=== PATIENT | female | born 1965 | race Hispanic/Latino ===

== ENCOUNTER 2024-10-18 17:19 | Emergency (ER) | payer OTHER ==
[2024-10-18 18:52] LABS: Absolute Eosinophils 0.1 K/uL (0-0.5); Absolute Lymphocytes (CBC) 1.1 K/uL (0.7-4.9); Absolute Neutrophil 6.8 K/uL (1.8-8.0); Basophils % 0.3 % (0-1.3); Eosinophils % 1.1 % (0-4.4); Hematocrit 15.5 % (36.0-45.0); Lymphocytes % 11.8 % (15.3-44.8); MCH 35.2 pg (27.0-35.0); MCHC 33.7 g/dL (32.0-36.0); MCV 104.6 fL (80-100); MPV 8.7 fL (7.6-11.3); Monocytes % 11.5 % (3.3-12.3); Neutrophils % 75.3 % (41.7-73.7); Platelets 112 thou/uL (152-406); RBC Red Blood Cell Count 1.49 M/uL (3.86-4.86); Red Cell Distribution Width 32.1 % (12.1-15.2)
[2024-10-18 19:00] LABS: Hemoglobin 5.2 g/dL (12.0-15.0)
[2024-10-18 19:14] LABS: Albumin 2.7 g/dL (3.4-5.0); Albumin/Globulin Ratio 1.3 (1.1-1.8); Anion Gap 11.2 mEq/L (5.0-15.0); Bilirubin Total 11.1 mg/dL (0.2-1.0); Globulin 2.1 g/dL (2.3-3.5); Potassium 4.2 mEq/L (3.5-5.1); Protein, Total 4.8 g/dL (6.4-8.2)
[2024-10-18 19:15] LABS: PTT, Activated Partial Thromb 48.5 SECONDS (24.3-36.9)
[2024-10-18 19:38] LABS: Anisocytosis 3+; Blood Morphology Comment NOTED (NOT SEEN); Platelet Estimate DECR; Poikilocytosis 2+; Polychromasia 2+; White Blood Cell Scan OK (OK)
[2024-10-18 19:39] LABS: ACANTHOCYTE FEW
[2024-10-18 19:40] LABS: Burr Cells 1+
[2024-10-18 21:11] LABS: PT Prothrombin Time 44.8 SECONDS (9.4-12.5); Protime INR 4.17
--- NOTE | 2024-10-18 21:33 | RAD REPORT ---
EXAM: CT Head Brain Wo Cont HISTORY: Confuse COMPARISON: None TECHNIQUE: Multiple contiguous axial images were obtained for a CT of the brain without contrast. Sag ittal and coronal reformats were performed. One or more of the following dose reduction techniques were used: Automated exposure control, adjus tment of the mA and kV according to patient size, and iterative reconstruction. Unless otherwise specified, incidental findings do not require dedicated imaging follow-up. FINDINGS: No evidence of hydrocephalus, intracranial hemorrhage, or extra-axial fluid collection. The brain is normal in morphology. The calvarium is intact. The visualized paranasal sinuses are clear. Patchy opacification within bila teral mastoid air cells. IMPRESSION: No evidence of acute intracranial abnormality. Bilateral mastoid effusions.
--- NOTE | 2024-10-18 21:52 | RAD REPORT ---
EXAM: CT CHEST, ABDOMEN AND PELVIS WITHOUT CONTRAST CLINICAL INDICATION: Female, 59 years old. [facility] MAIN confusion, cirrhosis Bed Name: 5 TECHNIQUE: CT chest, abdomen and pelvis was performed, without IV contrast, as per department protoco l. Axial, sagittal and coronal reconstructions were obtained. One or more of the following dose reduction techniques were used: Automated exposure control, adjustment of the mA and/or kV according to the patient size, and/or iterative reconstruction. Unless otherwise specified, incidental findings do not require dedicated imaging follow-up. COMPARISON: No prior exam. FINDINGS: The lack of intravenous contrast limits the sensitivity of this exam for evaluation of solid visceral organs, vascular structures, and retroperitoneum. Chest: LOWER NECK/CHEST WALL: Visualized thyroid gland and soft tissues are normal. LUNGS AND AIRWAYS: Airways are clear. No evidence of airspace or interstitial process. No nodules. PLEURA: Bilateral mild layering pleural effusion. No pneumothorax. Hemidiaphragms are normally positi oned. MEDIASTINUM AND LYMPH NODES: No mediastinal mass or fluid collection. Normal size mediastinal, hilar, and axillary lymph nodes. THORACIC AORTA: Normal caliber and configuration. PULMONARY ARTERIES: Normal caliber. HEART: Mildly enlarged. Abdomen/Pelvis LIVER: Normal in size and contour. No focal lesion. GALLBLADDER/BILE DUCTS: Status post cholecystectomy. PANCREAS: No mass, ductal dilation, or anil-pancreatic fluid. SPLEEN: Normal size. No focal lesion. ADRENALS: Normal; no mass. KIDNEYS AND URETERS: Normal size and contour. No hydronephrosis. GASTROINTESTINAL TRACT: Stomach is non-dilated. Small bowel has normal course and caliber. No colonic wall thickening or pericolonic inflammatory changes. PERITONEUM: Mild free ascites. LYMPH NODES: No lymphadenopathy. ABDOMINAL AORTA AND OTHER VESSELS: Normal caliber aorta and IVC. URINARY BLADDER: Partially decompressed limiting evaluation.. REPRODUCTIVE ORGANS: No pathologic process. MUSCULOSKELETAL: No acute or suspicious osseous abnormality. ADDITIONAL FINDINGS: Mild diffuse body wall edema. IMPRESSION: Mild free ascites, bilateral pleural effusions, and body wall edema, suggesting third spacing/fluid o verload. Mild cardiomegaly. Other findings as above.
[2024-10-18] MEDS ORDERED: NA CHLORIDE 0.9% 250 ML ONE (22:32)
[2024-10-18] MEDS ORDERED: LACTULOSE 20 GM/30 ML UCUP ONE (22:33)
[2024-10-19] MEDS ORDERED: ALBUMIN HUMAN 25% 100 ML IV ONE (04:44)
[2024-10-19 04:56] LABS: Hematocrit 21.6 % (36.0-45.0); Hemoglobin 7.3 g/dL (12.0-15.0)
[2024-10-19 05:30] LABS: Specific Gravity 1.016 (1.005-1.030); Urine Bacteria 20-50 /HPF (<20); Urine Bilirubin 2+ (Negative); Urine Blood Negative (Negative); Urine Clarity Extremely Turbid (Clear); Urine Color Dark-Yellow (Yellow); Urine Culture Reflex Order NOT NEEDED; Urine Glucose NEGATIVE (Negative); Urine Ketones NEGATIVE (Negative); Urine Microscopic Reflex YN ORDER UMIC; Urine Mucus Slight /HPF (None Seen); Urine Nitrite NEGATIVE (Negative); Urine Protein TRACE (Negative); Urine RBC <5 /HPF (None Seen); Urine Urobilinogen Normal (Normal); Urine Yeast (Budding) Many /HPF (None Seen)
[2024-10-19] MEDS ORDERED: FUROSEMIDE 40 MG/4 ML VIAL ONE (06:29)
[2024-10-19] MEDS ORDERED: CEFTRIAXONE 1000 MG/VIAL ONE (06:29)
[2024-10-19] MEDS ORDERED: NA CHLORIDE 0.9% 50 ML ONE (06:29)
--- NOTE | 2024-10-19 06:50 | EDPHYS ---
[facility] Documentation [facility] Name: Leila Leal Age: 59 yrs Sex: Female : 1965 Arrival Date: 10/18/2024 Time: 17:19 Bed 5 Private MD: ED Physician Trey Bailey HPI: 10/18 17:59 This 59 yrs old Female presents to ER via Wheelchair with complaints of AMS. sb4 18:01 Patient with history of cirrhosis on liver transplant list presents with worsening sb4 confusion. states that she gets like this when her hemoglobin is low when she needs a blood transfusion. States that she was released from [facility] 2-1/2 weeks ago and had several transfusions while she was there. States her last hemoglobin was 7 earlier this week. He reports compliance with her lactulose. 10/19 04:49 Patient care was assumed from nurse practitioner. Patient's medications include sp4 rifaximin 550 mg p.o. twice daily, zinc 50 mg 1 tablet in the morning, vitamin D two 1 capsule/week, brimonidine ophthalmic solution 3 times a day, ciprofloxacin 500 mg by mouth daily, dorzolamide timolol ophthalmic solution, lactulose 30 g 3 times a day, midodrine 10 mg p.o. 3 times daily, pantoprazole 40 mg p.o. daily,. Historical: - Allergies: 10/18 17:46 No Known Allergies; cm10 - Home Meds: 17:46 brimonidine 0.2 % ophthalmic (eye) drops 1 drop 3 times per day [Active]; Cipro 500 mg cm10 Oral tablet 1 tab daily [Active]; dorzolamide-timolol 22.3-6.8 mg/mL ophthalmic (eye) drops 1 drop 2 times per day [Active]; lactulose 10 gram/15 mL (15 mL) Oral solution 30 mL 3 times per day [Active]; midodrine 10 mg oral tablet 1 tab 3 times per day [Active]; pantoprazole 40 mg oral tablet, delayed release (enteric coated) 1 tab daily [Active]; rifaximin 550 mg oral tablet 1 tab 2 times per day [Active]; zinc sulfate 50 mg zinc (220 mg) Oral capsule 1 cap daily [Active]; Vitamin D2 1,250 mcg (50,000 unit) oral capsule 1 cap [Active]; - PMHx: 17:46 Cirrhosis of liver; Diabetes mellitus; HYPOTENSION; LIVER FAILURE; cm10 - PSHx: 17:46 section; Cholecystectomy; cm10 - Immunization history:: Adult Immunizations up to date. - Infectious Disease History:: Denies. - Social history:: Smoking status: Patient denies any tobacco usage or history of. ROS: 18:01 Constitutional: Negative for fever, chills, and weight loss, sb4 18:01 Neuro: Positive for confusion, 18:01 All other systems are negative, Exam: 18:01 Head/Face: Normocephalic, atraumatic. Eyes: Extra-ocular motions intact. Periorbital sb4 areas with no swelling, redness, or edema. ENT: Mucous membranes moist. Cardiovascular: Regular rate and rhythm with a normal S1 and S2. Respiratory: No increased work of breathing, no retractions or nasal flaring. Skin: Warm, dry with normal turgor. Normal color with no rashes, no lesions, and no evidence of cellulitis. 18:01 Constitutional: The patient appears alert, awake, obviously ill, 18:01 Eyes: Sclera: icterus, 18:01 Abdomen/GI: Inspection: obese 10/19 01:37 Skin: Appearance: Color: jaundiced, sb4 06:06 Constitutional: This is a well developed, ill-appearing female, diffusely jaundiced, sp4 mild to moderate physical deconditioning, able to stand up with assistance. Head/Face: Normocephalic, atraumatic. Eyes: Pupils equal round and reactive to light, extra-ocular motions intact. Lids and lashes normal. Patient has scleral icterus, cornea within normal limits. Periorbital areas with no swelling, redness, or edema. ENT: Nares patent. No nasal discharge, no septal abnormalities noted. Tympanic membranes are normal and external auditory canals are clear. Oropharynx with no redness, swelling, or masses, exudates, or evidence of obstruction, uvula midline. Tongue discoloration indicative of jaundice Neck: Trachea midline, no thyromegaly or masses palpated, and no cervical lymphadenopathy. Supple, full range of motion without nuchal rigidity, or vertebral point tenderness. Chest/axilla: Normal chest wall appearance and motion. Nontender with no deformity. No lesions are appreciated. Cardiovascular: Regular rate and rhythm with a normal S1 and S2. No gallops, murmurs, or rubs. Normal PMI, no JVD. No pulse deficits. Respiratory: Lungs have equal breath sounds bilaterally, clear to auscultation and percussion. No rales, rhonchi or wheezes noted. No increased work of breathing, no retractions or nasal flaring. Abdomen/GI: Soft, with normal bowel sounds. No distension or tympany. No guarding or rebound. No evidence of tenderness throughout. Rectal examination reveals no blood or melena, reveals no fissures or fistulas. No rectal mass, normal anal tone. Back: No spinal tenderness. No costovertebral tenderness. Skin: Warm, dry with normal turgor. Normal color with no rashes, no lesions, and no evidence of cellulitis. MS/ Extremity: Pulses equal, no cyanosis. Neurovascular intact. Full, normal range of motion. Neuro: Awake and alert, GCS 15, oriented to person, place, time, and situation. Cranial nerves II-XII grossly intact. Motor strength 5/5 in all extremities. Sensory grossly intact. Psych: Awake, alert, with orientation to person, place and time. Behavior, mood, and affect are within normal limits Vital Signs: 10/18 17:43 BP 108 / 64; Pulse 82; Resp 16; Temp 97.2(TE); Pulse Ox 96% on R/A; Weight 82.1 kg; cm10 Height 5 ft. 3 in. ; Pain 0/10; 19:40 BP 111 / 54; Pulse 81; Resp 18; Pulse Ox 99% ; Pain 0/10; br2 20:37 BP 112 / 57; Pulse 81; Resp 20 S; Pulse Ox 100% on R/A; br2 22:45 BP 110 / 60; Pulse 83; Resp 18 S; Pulse Ox 100% on R/A; br2 10/19 01:01 BP 106 / 53; Pulse 77; Resp 18 S; Pulse Ox 100% on R/A; br2 02:10 BP 105 / 55; Pulse 79; Resp 18; Temp 97.6; Pulse Ox 100% ; br2 05:20 BP 131 / 75; Pulse 58; Resp 18; Pulse Ox 95% on R/A; br2 05:46 BP 102 / 52; Pulse 81; Resp 16 S; Pulse Ox 100% on R/A; br2 07:21 BP 103 / 54; Pulse 88; Resp 16 S; Pulse Ox 99% on R/A; kc6 08:02 BP 115 / 55; Pulse 86; Resp 16 S; Pulse Ox 98% on R/A; kc6 11:53 BP 117 / 78; Pulse 98; Resp 16 S; Pulse Ox 100% on R/A; kc6 14:07 BP 111 / 58; Pulse 86; Resp 16 S; Pulse Ox 100% on R/A; kc6 17:08 BP 118 / 62; Pulse 91; Resp 16 S; Pulse Ox 100% on R/A; kc6 10/18 17:43 Body Mass Index 32.06 (82.10 kg, 160.02 cm) cm10 10/18 17:43 Pain Scale: Adult cm10 19:40 Pain Scale: Adult br2 Ray Coma Score: 06:06 Eye Response: spontaneous(4). Motor Response: obeys commands(6). Verbal Response: sp4 oriented(5). Total: 15. MDM: 10/18 17:52 Medical Screening Exam initiated sb4 19:36 Data reviewed: vital signs, nurses notes, lab test result(s), radiologic studies. sb4 10/19 04:35 ED course: EXAM: CT CHEST, ABDOMEN AND PELVIS WITHOUT CONTRAST CLINICAL INDICATION: sp4 Female, 59 years old. [facility] MAIN confusion, cirrhosis Bed Name: 5 TECHNIQUE: CT chest, abdomen and pelvis was performed, without IV contrast, as per department protocol. Axial, sagittal and coronal reconstructions were obtained. One or more of the following dose reduction techniques were used: Automated exposure control, adjustment of the mA and/or kV according to the patient size, and/or iterative reconstruction. Unless otherwise specified, incidental findings do not require dedicated imaging follow-up. COMPARISON: No prior exam. FINDINGS: The lack of intravenous contrast limits the sensitivity of this exam for evaluation of solid visceral organs, vascular structures, and retroperitoneum. Chest: LOWER NECK/CHEST WALL: Visualized thyroid gland and soft tissues are normal. LUNGS AND AIRWAYS: Airways are clear. No evidence of airspace or interstitial process. No nodules. PLEURA: Bilateral mild layering pleural effusion. No pneumothorax. Hemidiaphragms are normally positioned. MEDIASTINUM AND LYMPH NODES: No mediastinal mass or fluid collection. Normal size mediastinal, hilar, and axillary lymph nodes. THORACIC AORTA: Normal caliber and configuration. PULMONARYARTERIES: Normal caliber. HEART: Mildly enlarged. Abdomen/Pelvis LIVER: Normal in size and contour. No focal lesion. GALLBLADDER/BILE DUCTS: Status post cholecystectomy. PANCREAS: No mass, ductal dilation, or anil-pancreatic fluid. SPLEEN: Normal size. No focal lesion. ADRENALS: Normal; no mass. KIDNEYS AND URETERS: Normal size and contour. No hydronephrosis. GASTROINTESTINAL TRACT: Stomach is non-dilated. Small bowel has normal course and caliber. No colonic wall thickening or pericolonic inflammatory changes. PERITONEUM: Mild free ascites. LYMPH NODES: No lymphadenopathy. ABDOMINAL AORTA AND OTHER VESSELS: Normal caliber aorta and IVC. URINARYBLADDER: Partially decompressed limiting evaluation.. REPRODUCTIVE ORGANS: No pathologic process. MUSCULOSKELETAL: No acute or suspicious osseous abnormality. ADDITIONAL FINDINGS: Mild diffuse body wall edema. IMPRESSION: Mild free ascites, bilateral pleural effusions, and body wall edema, suggesting third spacing/fluid overload. Mild cardiomegaly. Other findings as above. . 04:37 ED course: EXAM: CT Head Brain Wo Cont HISTORY: Confuse COMPARISON: None TECHNIQUE: sp4 Multiple contiguous axial images were obtained for a CT of the brain without contrast. Sagittal and coronal reformats were performed. One or more of the following dose reduction techniques were used: Automated exposure control, adjustment of the mA and kV according to patient size, and iterative reconstruction. Unless otherwise specified, incidental findings do not require dedicated imaging follow-up. FINDINGS: No evidence of hydrocephalus, intracranial hemorrhage, or extra-axial fluid collection. The brain is normal in morphology. The calvarium is intact. The visualized paranasal sinuses are clear. Patchy opacification within bilateral mastoid air cells. IMPRESSION: No evidence of acute intracranial abnormality. Bilateral mastoid effusions. . 04:47 ED course: MELD score including serum albumin is 34. ED course: Patient remains sp4 confused appears encephalopathic. Will take steps to transfer patient for consultation with hepatology and further management. Patient's family requested transfer to [facility].. 05:39 Differential Diagnosis altered mental status, sepsis, flu, Hepatic encephalopathy. ED sp4 course: Patient was declined at [facility] secondary to hepatology available.. Patient was declined at [facility] secondary to capacity. Patient was declined at [facility] secondary to capacity. Patient was also declined at [facility] secondary to capacity. At this time requesting transfer to [facility]. . 06:04 Consideration of Admission/Observation Escalation of care including sp4 admission/observation considered. Management of patient was discussed with the following: Trader: Dr. Emiliano Leon with gastroenterology. ED course: Patient was declined by all hospitals in [place] that have hepatology available. Patient is found stable for admission here with GI consult. . 06:42 ED course: Spoke with Dr. Nelson Montes De Oca Pewter Caster at [facility] sp4 - he states that patient will be placed on the waiting list at [facility]. . 07:07 Transition of care: After a detail discussion of the patient's case, care is sp4 transferred to Trey Bailey DO. 14:24 ED course: Doc to doc with Dr Cruz at [facility] completed. She recommends vitamin K for ms3 INR. Patient being escalated; however, patient is on wait list for transfer.. 14:31 ED course: Dr Oneal consulted for assistance in management while patient is pending ms3 transfer to [facility].. 16:59 ED course: Per Dr Oneal patient needs to be transferred for Hepatology. ms3 10/18 17:47 Order name: CBC with Diff; Complete Time: 19:42 sb4 10/18 17:47 Order name: CMP; Complete Time: 19:21 sb4 10/18 17:47 Order name: Urinalysis w/ reflexes; Complete Time: 05:40 sb4 10/18 17:59 Order name: AMMONIA; Complete Time: 19:10 sb4 10/18 17:59 Order name: PT-INR; Complete Time: 21:13 sb4 10/18 17:59 Order name: Ptt, Activated; Complete Time: 21:13 sb4 10/18 19:01 Order name: Type And Screen sb4 10/18 19:18 Order name: Packed RBC Leukored EDMS 10/18 19:41 Order name: CBC Smear Scan; Complete Time: 19:42 EDMS 10/19 04:38 Order name: Hemoglobin; Complete Time: 05:40 sp4 10/19 04:38 Order name: Hematocrit; Complete Time: 05:40 sp4 10/19 06:51 Order name: Glucose, Ancillary Testing; Complete Time: 07:01 EDMS 10/18 19:28 Order name: Head Brain Wo Cont CT; Complete Time: 21:35 sb4 10/18 19:28 Order name: CT Chest Abdomen Pelvis W/O Contrast; Complete Time: 21:53 sb4 10/18 17:47 Order name: IV Saline Lock; Complete Time: 18:43 sb4 10/18 17:47 Order name: Labs collected and sent; Complete Time: 18:43 sb4 10/18 19:01 Order name: Transfuse; Complete Time: 07:06 sb4 10/18 19:25 Order name: Misc. Order: RECOLLECT BLUE TOP; Complete Time: 21:38 rv1 10/19 06:03 Order name: Keita; Complete Time: 06:25 sp4 Administered Medications: 10/18 23:29 Drug: Lactulose PO 20 grams 30 ml PO once Volume: 30 ml; Route: PO; br2 10/19 01:30 Follow up: Response: No adverse reaction br2 05:18 Drug: Albumin IVPB 25 grams 100 ml IVPB once; (Note: Albumin 25% concentration) Volume: br2 100 ml; Route: IVPB; Site: right antecubital; 06:25 Follow up: Response: No adverse reaction; IV Status: Completed infusion; IV Intake: br2 100ml 06:41 Drug: Furosemide IVP 40 mg IVP once; give over 2 minutes Route: IVP; Site: right br2 antecubital; 07:20 Follow up: Response: No adverse reaction kc6 06:42 Not Given (NOT AVAILABLE IN HOSPITAL, DR Allen NOTIFIEDd): Xifaxan 550 mg PO once br2 06:45 Drug: Rocephin - Rocephin (cefTRIAXone) IVPB 1 grams IVPB once over 30 mins; (mix in 50 br2 mL NS) Route: IVPB; Infused Over: 30 mins; Site: right antecubital; 07:20 Follow up: Response: No adverse reaction; IV Status: Completed infusion; IV Intake: [id number] 07:19 Drug: Ondansetron IVP 4 mg IVP once; over 2 minutes Route: IVP; Site: right upper arm; kc6 08:03 Follow up: Response: No adverse reaction kc6 07:20 Drug: D5-NS IV 1000 ml IV at 100 ml/hr continuous Route: IV; Rate: 100 ml/hr; Site: [facility] right upper arm; 17:40 Follow up: Response: No adverse reaction; IV Status: Completed infusion; IV Intake: kc6 1000ml 07:20 Drug: Lactulose PO 30 grams 45 ml PO once Volume: 45 ml; Route: PO; kc6 08:03 Follow up: Response: No adverse reaction kc6 15:18 Drug: Vitamin K1 Liquid 5 mg PO once Route: PO; kc6 17:24 Follow up: Response: No adverse reaction kc6 17:34 Drug: Lactulose PO 50 grams 45 ml PO once; ordering continuing from [facility] Volume: 45 kc6 ml; Route: PO; 17:40 Follow up: Response: No adverse reaction kc6 Disposition: 04:26 Co-signature as Attending Physician, Jaret Galvez MD I agree with the assessment sp4 and plan of care. I reviewed the patient's care provided by Advanced Practice Provider \T\ agree w/ the diagnosis \T\ care plan. I personally saw the pt \T\ performed a substantive portion of the visit, incldng all aspects of the (History/Exam/Medical Decision Making). Disposition Summary: 10/19/24 07:01 Transfer Ordered Notes: Transfer Location: [facility] sp4 Reason: Higher level of care sp4 Condition: Fair(10/19/24 07:01) sp4 Problem: new(10/19/24 07:01) sp4 Symptoms: have improved(10/19/24 07:01) sp4 Accepting Physician: Hepatology Service [facility] (10/19/24 17:47) kc6 Diagnosis - Hepatic failure, unspecified without coma(10/19/24 07:01) sp4 - Acute and subacute hepatic failure sp4 - Hepatic encephalopathy, coagulopathy secondary to chronic liver disease, sp4 symptomatic anemia, anemia of chronic liver disease, physical deconditioning, Anasarca - Acute Hypoactive Delirium sp4 Forms: - Medication Reconciliation Form sp4 - SBAR form sp4 Critical care time excluding procedures: 10/18 19:36 Critical care time: Bedside Care: 15 minutes, Consultation: 15 minutes, Family sb4 Intervention: 5 minutes. Total time: 35 minutes Signatures: Dispatcher [employer] EDMS Trey Bailey, DO ms3 Radha Williamson, RN RN kc6 Salima Robledo PA-C PA-C sb4 Anny Ballesteros rv1 Jaret Galvez MD MD sp4 Vickie Christine, RN RN cm10 Sharlene Escobedo RN RN br2 Corrections: (The following items were deleted from the chart) 10/19 01:38 10/18 18:01 Head/Face: Normocephalic, atraumatic. Eyes: Extra-ocular motions intact. sb4 Periorbital areas with no swelling, redness, or edema. ENT: Mucous membranes moist. Cardiovascular: Regular rate and rhythm with a normal S1 and S2. Respiratory: No increased work of breathing, no retractions or nasal flaring. Skin: Warm, dry with normal turgor. Normal color with no rashes, no lesions, and no evidence of cellulitis. sb4 10/19 06:59 06:49 Inpatient Admission sp4 sp4 06:59 06:49 OnealWenceslao-Ran sp4 sp4 06:59 06:49 Telemetry/MedSurg (Inpatient) sp4 sp4 06:59 06:49 Serious sp4 sp4 06:59 06:49 new sp4 sp4 06:59 06:49 have improved sp4 sp4 06:59 06:49 Standard sp4 sp4 06:59 06:49 sp4 sp4 06:59 06:49 Hepatic failure, unspecified without coma sp4 sp4 06:59 06:49 Acute hepatic encephalopathy, symptomatic anemia, anemia of chronic liver sp4 disease, coagulopathy associated with liver failure, elevated INR, anasarca sp4 17:47 07:01 Hepatology Service [facility] sp4 kc6
--- NOTE | 2024-10-19 06:50 | ER ---
Nurse's Notes [facility] Name: Leila Leal Age: 59 yrs Sex: Female : 1965 Arrival Date: 10/18/2024 Time: 17:19 Bed 5 Private MD: Diagnosis: Hepatic failure, unspecified without coma;Acute and subacute hepatic failure;Hepatic encephalopathy, coagulopathy secondary to chronic liver disease, symptomatic anemia, anemia of chronic liver disease, physical deconditioning, Anasarca;Acute Hypoactive Delirium Presentation: 10/18 17:43 Chief complaint: Spouse and/or significant other states: PT HAS BEEN ACTING CONFUSED. cm10 STATES THAT PT STARTS ACTING THIS WAY WHEN SHE NEEDS A BLOOD TRANSFUSION. PT'S HGB LAST FRIDAY WAS 7.0. Coronavirus screen: Client denies travel out of the [place] in the last 14 days. Ebola Screen: Patient denies travel to an Ebola-affected area in the 21 days before illness onset. No symptoms or risks identified at this time. Initial Sepsis Screen: Does the patient meet any 2 criteria? No. Patient's initial sepsis screen is negative. Does the patient have a suspected source of infection? No. Patient's initial sepsis screen is negative. Risk Assessment: Do you want to hurt yourself or someone else? Patient reports no desire to harm self or others. Onset of symptoms was October 18, 2024. 17:43 Method Of Arrival: Wheelchair [facility] 17:43 Acuity: HI 3 cm10 Triage Assessment: 17:51 General: Appears in no apparent distress. uncomfortable, Behavior is calm, cooperative. cm10 Neuro: No deficits noted. Level of Consciousness is awake, confused. Derm: Skin is jaundiced. Historical: - Allergies: 17:46 No Known Allergies; cm10 - Home Meds: 17:46 brimonidine 0.2 % ophthalmic (eye) drops 1 drop 3 times per day [Active]; Cipro 500 mg cm10 Oral tablet 1 tab daily [Active]; dorzolamide-timolol 22.3-6.8 mg/mL ophthalmic (eye) drops 1 drop 2 times per day [Active]; lactulose 10 gram/15 mL (15 mL) Oral solution 30 mL 3 times per day [Active]; midodrine 10 mg oral tablet 1 tab 3 times per day [Active]; pantoprazole 40 mg oral tablet, delayed release (enteric coated) 1 tab daily [Active]; rifaximin 550 mg oral tablet 1 tab 2 times per day [Active]; zinc sulfate 50 mg zinc (220 mg) Oral capsule 1 cap daily [Active]; Vitamin D2 1,250 mcg (50,000 unit) oral capsule 1 cap [Active]; - PMHx: 17:46 Cirrhosis of liver; Diabetes mellitus; HYPOTENSION; LIVER FAILURE; cm10 - PSHx: 17:46 section; Cholecystectomy; cm10 - Immunization history:: Adult Immunizations up to date. - Infectious Disease History:: Denies. - Social history:: Smoking status: Patient denies any tobacco usage or history of. Screenin:14 Abuse screen: Denies threats or abuse. Denies injuries from another. Nutritional ph screening: No deficits noted. Tuberculosis screening: No symptoms or risk factors identified. 18:52 [facility] ED Fall Risk Assessment (Adult) History of falling in the last 3 months, ph including since admission No falls in past 3 months (0 pts) Confusion or Disorientation Yes (5 pts) Intoxicated or Sedated No (0 pts) Impaired Gait No (0 pts) Mobility Assist Device Used Yes (1 pt) Altered Elimination Yes (1 pt) Score/Fall Risk Level 3 or more points = High Risk Oriented to surroundings, Maintained a safe environment, Hourly rounding (assess needs \T\ fall precautionary measures) done, Used ambulatory aids as needed (educated on \T\ assisted with). Assessment: 18:52 General: Appears in no apparent distress. uncomfortable, Behavior is cooperative. Pain: ph Denies pain. Neuro: Level of Consciousness is awake, obeys commands, confused, lethargic, Oriented to person, place. Cardiovascular: Capillary refill < 3 seconds in bilateral fingers Patient's skin is warm and dry. Respiratory: Airway is patent Respiratory effort is even, unlabored, Respiratory pattern is regular, symmetrical. GI: Abdomen is round. Derm: Skin is jaundiced. Musculoskeletal: Circulation, motion, and sensation intact. Range of motion: intact in all extremities. 19:41 Reassessment: Patient and/or family updated on plan of care and expected duration. Pain br2 level reassessed. Patient is alert, oriented x 3, equal unlabored respirations, skin warm/dry/pink. General: Appears in no apparent distress. comfortable, Behavior is calm, cooperative. Pain: Denies pain. Neuro: Garcia Agitation-Sedation Scale (RASS): 0 - Alert and Calm Level of Consciousness is awake, alert, obeys commands, Oriented to person, place, time. Cardiovascular: Capillary refill < 3 seconds. Respiratory: Airway is patent Respiratory effort is even, unlabored, Respiratory pattern is regular, symmetrical. GI: No signs and/or symptoms were reported involving the gastrointestinal system. : No signs and/or symptoms were reported regarding the genitourinary system. EENT: No signs and/or symptoms were reported regarding the EENT system. Derm: No signs and/or symptoms reported regarding the dermatologic system. Skin is dry, Skin is jaundiced, Skin temperature is warm. Musculoskeletal: Circulation, motion, and sensation intact. Capillary refill < 3 seconds, Range of motion: intact in all extremities. 20:37 Reassessment: No changes from previously documented assessment. Patient and/or family br2 updated on plan of care and expected duration. Pain level reassessed. Patient is alert, oriented x 3, equal unlabored respirations, skin warm/dry/pink. 23:30 Reassessment: No changes from previously documented assessment. Patient and/or family br2 updated on plan of care and expected duration. Pain level reassessed. Patient is alert, oriented x 3, equal unlabored respirations, skin warm/dry/pink. PACKED RED BLOOD CELLS STARTED... Patient denies pain at this time. 10/19 02:10 Reassessment: No changes from previously documented assessment. PT RESTING IN BED, NO br2 DISTRESS NOTED. 2ND UNIT OF PRBC STARTED. PLEASE SEE TRANSFUSION RECORD FOR VITAL SIGNS. 02:56 Reassessment: No changes from previously documented assessment. Patient and/or family br2 updated on plan of care and expected duration. Pain level reassessed. Patient is alert, oriented x 3, equal unlabored respirations, skin warm/dry/pink. 04:25 Reassessment: PT OUT OF BED TO BATHROOM WITH ASSIST. PT TAKEN TO BATHROOM VIA br2 WHEELCHAIR, PT STOOD UP AND HELD HAND RAIL AND MYSELF STANDING IN FRONT OF HER ASSISTING. PT RELEASE HAND RAIL CAUSING HER TO LOOSE HER BALANCE SLIDING DOWN TO THE FLOOR ON HER BUTTOCKS. PT HAD NEG LOC AND WAS ASSISTED BACK ON HER FEET AND TO SIT ON THE TOILET. PT REMINDED NOT TO RELEASE HAND RAIL. PT WAS ABLE TO STAND AFTER URINATION WITH ASSIST BACK ON WHEELCHAIR AND BACK ON BED. 04:59 Reassessment: PT'S SECOND UNIT OF BLOOD COMPLETED AND PT REQUESTING TO GO TO THE br2 BATHROOM. 05:22 Reassessment: Patient and/or family updated on plan of care and expected duration. Pain br2 level reassessed. Patient is alert, oriented x 3, equal unlabored respirations, skin warm/dry/pink. RESTING IN BED, NO DISTRESS NOTED Patient states symptoms have improved. 05:47 Reassessment: No changes from previously documented assessment. Patient and/or family br2 updated on plan of care and expected duration. Pain level reassessed. Patient is alert, oriented x 3, equal unlabored respirations, skin warm/dry/pink. 07:02 Reassessment: FINGER STICK 88. br2 07:10 General: Appears in no apparent distress. comfortable, well developed, Behavior is kc6 calm, cooperative, appropriate for age, drowsy. Neuro: Level of Consciousness is awake, alert, obeys commands, lethargic, Oriented to person, place, time, situation, Appropriate for age. Cardiovascular: Capillary refill < 3 seconds Rhythm is regular. Respiratory: Airway is patent Trachea midline Respiratory effort is even, unlabored, Respiratory pattern is regular, symmetrical. GI: No signs and/or symptoms were reported involving the gastrointestinal system. Abdomen is round non-distended. : Keita in place to gravity drainage clamped Urine is clear. EENT: No signs and/or symptoms were reported regarding the EENT system. Derm: Skin is intact, is healthy with good turgor, Skin is dry, Skin is jaundiced, pale, Skin temperature is warm. Musculoskeletal: No signs and/or symptoms reported regarding the musculoskeletal system. Circulation, motion, and sensation intact. Capillary refill < 3 seconds, Range of motion: intact in all extremities. 08:02 Reassessment: Patient appears in no apparent distress at this time. No changes from kc6 previously documented assessment. Patient and/or family updated on plan of care and expected duration. Pain level reassessed. Patient is alert, oriented x 3, equal unlabored respirations, skin warm/dry/pink. 09:02 Reassessment: Patient appears in no apparent distress at this time. No changes from kc6 previously documented assessment. Patient and/or family updated on plan of care and expected duration. Pain level reassessed. Patient is alert, oriented x 3, equal unlabored respirations, skin warm/dry/pink. 10:02 Reassessment: Patient appears in no apparent distress at this time. No changes from kc6 previously documented assessment. Patient and/or family updated on plan of care and expected duration. Pain level reassessed. Patient is alert, oriented x 3, equal unlabored respirations, skin warm/dry/pink. 11:02 Reassessment: Patient appears in no apparent distress at this time. No changes from kc6 previously documented assessment. Patient and/or family updated on plan of care and expected duration. Pain level reassessed. Patient is alert, oriented x 3, equal unlabored respirations, skin warm/dry/pink. 14:07 Reassessment: Patient appears in no apparent distress at this time. No changes from kc6 previously documented assessment. Patient and/or family updated on plan of care and expected duration. Pain level reassessed. Patient is alert, oriented x 3, equal unlabored respirations, skin warm/dry/pink. 15:53 Reassessment: attempted to call report to [facility]. no answer at this time. [facility] 17:08 Reassessment: Patient appears in no apparent distress at this time. No changes from [facility] previously documented assessment. Patient and/or family updated on plan of care and expected duration. Pain level reassessed. Patient is alert, oriented x 3, equal unlabored respirations, skin warm/dry/pink. Vital Signs: 10/18 17:43 BP 108 / 64; Pulse 82; Resp 16; Temp 97.2(TE); Pulse Ox 96% on R/A; Weight 82.1 kg; cm10 Height 5 ft. 3 in. ; Pain 0/10; 19:40 BP 111 / 54; Pulse 81; Resp 18; Pulse Ox 99% ; Pain 0/10; br2 20:37 BP 112 / 57; Pulse 81; Resp 20 S; Pulse Ox 100% on R/A; br2 22:45 BP 110 / 60; Pulse 83; Resp 18 S; Pulse Ox 100% on R/A; br2 10/19 01:01 BP 106 / 53; Pulse 77; Resp 18 S; Pulse Ox 100% on R/A; br2 02:10 BP 105 / 55; Pulse 79; Resp 18; Temp 97.6; Pulse Ox 100% ; br2 05:20 BP 131 / 75; Pulse 58; Resp 18; Pulse Ox 95% on R/A; br2 05:46 BP 102 / 52; Pulse 81; Resp 16 S; Pulse Ox 100% on R/A; br2 07:21 BP 103 / 54; Pulse 88; Resp 16 S; Pulse Ox 99% on R/A; kc6 08:02 BP 115 / 55; Pulse 86; Resp 16 S; Pulse Ox 98% on R/A; kc6 11:53 BP 117 / 78; Pulse 98; Resp 16 S; Pulse Ox 100% on R/A; kc6 14:07 BP 111 / 58; Pulse 86; Resp 16 S; Pulse Ox 100% on R/A; kc6 17:08 BP 118 / 62; Pulse 91; Resp 16 S; Pulse Ox 100% on R/A; kc6 10/18 17:43 Body Mass Index 32.06 (82.10 kg, 160.02 cm) cm10 10/18 17:43 Pain Scale: Adult cm10 19:40 Pain Scale: Adult br2 [place] Coma Score: 06:06 Eye Response: spontaneous(4). Motor Response: obeys commands(6). Verbal Response: sp4 oriented(5). Total: 15. ED Course: 10/18 17:30 Patient arrived in ED. im 17:30 Salima Robledo PA-C is PHCP. sb4 17:30 Rufino Kam MD is Attending Physician. sb4 17:46 Triage completed. cm10 17:51 Arm band placed on right wrist. Patient placed in an exam room. cm10 18:13 Julianna Gonzalez, ARTUR is Primary Nurse. ph 18:14 Patient has correct armband on for positive identification. Placed in gown. Bed in low ph position. Call light in reach. Side rails up X 1. Pulse ox on. NIBP on. 18:35 Missed attempt(s): 22 gauge in right antecubital area. Bleeding controlled, band aid ph applied, catheter tip intact. 18:40 Initial lab(s) drawn, by mn, sent to lab. Inserted saline lock: 22 gauge in left aa5 antecubital area, using aseptic technique. Blood collected. Flushed with 10 mL NS. 20:12 Type And Screen Sent. br2 20:35 Missed attempt(s): 20 gauge in right antecubital area. br2 20:35 Missed attempt(s): 22 gauge in right forearm. br2 20:41 Head Brain Wo Cont CT In Process Unspecified. EDMS 20:41 CT Chest Abdomen Pelvis W/O Contrast In Process Unspecified. EDMS 21:54 Inserted saline lock: 20 gauge in right upper arm, using aseptic technique. ,using bm8 aseptic technique. ultrasound guided Blood collected. Flushed with 10 mL NS. 22:14 Attending Physician role handed off by Rufino Kam MD sp4 22:14 Jaret Galvez MD is Attending Physician. sp4 23:29 Packed RBC Leukored Sent. br2 10/19 04:25 Provided Education on: Fall precaution . ha1 04:49 Hematocrit Sent. vk 04:52 Hematocrit Sent. br2 04:52 Hemoglobin Sent. br2 04:58 Initiated transfer with Nicole at [facility]. rv1 05:03 [facility] declined due to capacity. rv1 05:03 Initiated transfer with Leonie at [facility]. rv1 05:12 [facility] declined due to capacity. rv1 05:13 Initiated transfer with Kasie at [facility]. rv1 05:21 [facility] declined due to capacity. rv1 05:23 Initiated with Anum at [facility]. rv1 05:37 [facility] declined due to lack of capability. rv1 05:39 Initiated transfer with Lizett at [facility]. rv1 06:[address] [facility] [employer] for consult with Dr. Galvez. Awaiting call rv1 back. 06:26 Keita cath inserted, using sterile technique, 16 Fr., by ED staff, balloon inflated, to br2 gravity drainage, clamped. 06:33 [facility] declined due to capacity. rv1 06:46 [employer] [phone]. rv1 06:47 Lionel Oneal is Hospitalizing Provider. sp4 07:00 Report received from Sharlene Escobedo RN and Rafi RN. kc6 07:00 Patient has correct armband on for positive identification. Placed in gown. Bed in low kc6 position. Call light in reach. Side rails up X2. cashier associate on. Pulse ox on. NIBP on. Door closed. Noise minimized. Lights dimmed. Warm blanket given. Pillow given. 07:00 Patient maintains SpO2 saturation greater than 95% on room air. kc6 13:36 contacted [facility] to check status of transfer, was informed by Martita Enriquez that bd the pt was denied at 0509 due to no capacity. 14:31 Attending Physician role handed off by Jaret Galvez MD ms3 14:31 Trey Bailey DO is Attending Physician. ms3 17:40 No provider procedures requiring assistance completed. Patient transferred, IV remains kc6 in place. Administered Medications: 10/18 23:29 Drug: Lactulose PO 20 grams 30 ml PO once Volume: 30 ml; Route: PO; br2 10/19 01:30 Follow up: Response: No adverse reaction br2 05:18 Drug: Albumin IVPB 25 grams 100 ml IVPB once; (Note: Albumin 25% concentration) Volume: br2 100 ml; Route: IVPB; Site: right antecubital; 06:25 Follow up: Response: No adverse reaction; IV Status: Completed infusion; IV Intake: br2 100ml 06:41 Drug: Furosemide IVP 40 mg IVP once; give over 2 minutes Route: IVP; Site: right br2 antecubital; 07:20 Follow up: Response: No adverse reaction kc6 06:42 Not Given (NOT AVAILABLE IN HOSPITAL, DR Allen NOTIFIEDd): Xifaxan 550 mg PO once br2 06:45 Drug: Rocephin - Rocephin (cefTRIAXone) IVPB 1 grams IVPB once over 30 mins; (mix in 50 br2 mL NS) Route: IVPB; Infused Over: 30 mins; Site: right antecubital; 07:20 Follow up: Response: No adverse reaction; IV Status: Completed infusion; IV Intake: [id number] 07:19 Drug: Ondansetron IVP 4 mg IVP once; over 2 minutes Route: IVP; Site: right upper arm; kc6 08:03 Follow up: Response: No adverse reaction kc6 07:20 Drug: D5-NS IV 1000 ml IV at 100 ml/hr continuous Route: IV; Rate: 100 ml/hr; Site: kc6 right upper arm; 17:40 Follow up: Response: No adverse reaction; IV Status: Completed infusion; IV Intake: kc6 1000ml 07:20 Drug: Lactulose PO 30 grams 45 ml PO once Volume: 45 ml; Route: PO; kc6 08:03 Follow up: Response: No adverse reaction kc6 15:18 Drug: Vitamin K1 Liquid 5 mg PO once Route: PO; kc6 17:24 Follow up: Response: No adverse reaction kc6 17:34 Drug: Lactulose PO 50 grams 45 ml PO once; ordering continuing from [facility] Volume: 45 kc6 ml; Route: PO; 17:40 Follow up: Response: No adverse reaction kc6 Medication: 10/18 18:14 VIS not applicable for this client. ph Intake: 10/19 06:25 IV: 100ml; Total: 100ml. br2 07:20 IV: 50ml; Total: 150ml. kc6 17:40 IV: 1000ml; Total: 1150ml. kc6 Output: 11:21 Urine: 1600ml (Keita); Total: 1600ml. cc6 Outcome: 06:49 Decision to Hospitalize by Provider. sp4 07:01 ER care complete, transfer ordered by . sp4 17:45 Transferred by ground EMS to [facility], Transfer form completed. kc6 17:45 Condition: stable 17:45 Instructed on the need for transfer, 17:47 Patient left the ED. kc6 Signatures: Dispatcher [employer] EDMS Ilsa Bejarano Audri RN RN [id number] Julianna Gonzalez RN RN ph Sims, Marcus, DO DO ms3 Dayana Lizama RN RN Radha Campbell RN RN [email or web address] Salima Robledo, PA-Glenna PA-C [email or web address] Anny Ballesteros rvJaret Escudero MD MD sp4 Yoselyn Perry Clarissa RN RN [email or web address] Ernestine Mccormack Brad RN ARTUR [id number] Sharlene Escobedo RN RN br2 Concepcion Krause cc6 Corrections: (The following items were deleted from the chart) 10/18 17:51 17:43 BP 108 / 64; Pulse 82bpm; Resp 16bpm; Pulse Ox 96% RA; Temp 97.2F Temporal; 72.12 cm10 kg; Height 5 ft. 3 in.; BMI: 28.1; Pain 0/10, Adult; cm10
[2024-10-19] MEDS ORDERED: LACTULOSE 20 GM/30 ML UCUP ONE ×2 (07:10→17:26)
[2024-10-19] MEDS ORDERED: ONDANSETRON 4 MG/2 ML VIAL ONE (07:10)
[2024-10-19] MEDS ORDERED: D5 0.9 NS 1,000 ML IV ONE (07:11)
--- NOTE | 2024-10-19 08:58 | P.CNS ---
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 The patient was admitted 2 weeks ago in [facility] for the same problem patient received transfusion for anemia. Patient was noted to have hemoglobin 5.2, 2 unit packed cells transfused, her total bilirubin 11.1, INR 4.1, no clinical bleeding. Patient is being transferred to [facility] for further evaluation and management of end-stage liver disease. Interval medicine was consulted for management while patient is awaiting in ED. Allergies No Known Allergies Allergy (Unverified 10/19/24 07:38) Review of Systems is unable to be obtained Physical Examination Other Physical/Emotional Findings: - Physical Exam. General: Chronic ill- looking, in no apparent distress,. HEENT: Normocephalic, atraumatic, icteric sclera, anemic conjunctive. Neck: Supple, without JVD or goiter or thyroid mass. Respiratory: Normal breathing effort, clear to auscultation bilaterally, no crackles no wheezing or rhonchi. Cardiovascular: Regular rate and rhythm, S1, S2 normal, no murmur no gallop. Gastrointestinal: Normal bowel sounds, mildly distended, nontender, mild ascites, no direct tenderness or rebound tenderness, No masses, no hepatosplenomegaly. Extremities l: No clubbing, No peripheral edema, full range of motion, no deformity, no muscle atrophy. Integumentary: No rashes, petechia, suspected lesions. Lymphatics: No axilla or cervical lymphadenopathy. Neurology; drowsy, easily arousable by painful st imuli, flapping tremor present Laboratory Data (last 24 hrs) 10/19/24 10/18/24 10/18/24 04:47 18:43 18:43 WBC Hgb 7.3 L D Hct 21.6 L Plt Count PT 44.8 H INR 4.17 APTT 48.5 H Sodium 138 Potassium 4.2 BUN 4 L Creatinine 1.08 H Glucose 100 Total Bilirubin 11.1 H AST 100 H ALT 80 H Alkaline Phosphatase 134 H 10/18/24 18:43 WBC 9.00 Hgb 5.2 L* Hct 15.5 L Plt Count 112 L PT INR APTT Sodium Potassium BUN Creatinine Glucose Total Bilirubin AST ALT Alkaline Phosphatase Conclusions/Impression: This is 59 years old lady with a past medical history notable for end-stage liver disease secondary to alcoholic liver cirrhosis, portal hypertension, pancytopenia, hepatic encephalopathy, anemia requiring transfusion, recent hospitalization for hepatic encephalopathy and anemia in [facility] in [facility], patient currently on transplant list. She was brought to emergency room by her family member for worsening drowsiness, patient is being transferred to [facility], which is still pending. #1 moderate hepatic encephalopathy secondary to #2 #2 end-stage liver disease, MELD score 88 #3 severe anemia associated with #2 Hemoglobin up to 7.3 from 5.2, patient need restrictive transfusion to prevent any vaginal bleeding, target hemoglobin around 7, currently no clinical active bleeding noted, etiology of hepatic encephalopathy is likely progression of her liver disease, patient need liver liver transplantation as soon as possible. No intracranial hemorrhage or cerebral edema by CT of the head on admission. I would recommend rifaximin 550 twice daily, lactulose 15 g 3 times daily, start oral diet. Patient is adequate for transfer for higher level of care.
[2024-10-19] MEDS ORDERED: Rifaximin 550 MG Tab PO SCH (09:00)
[2024-10-19] MEDS ORDERED: LACTULOSE 20 GM/30 ML UCUP PO SCH (09:00)
[2024-10-19] MEDS ORDERED: VITAMIN K (ADULT) 10 MG/ML ONE (15:12)
[2024-10-19 18:40] VITALS: TEMP 97.6
[2024-10-19 18:48] VITALS: O2SAT 100
[2024-10-19 18:52] VITALS: BP 118/62
== END 2024-10-19 17:47 | disposition short-term general hospital (02) ==
LOC: ER 17:19
PROC: 30233N1 Transfusion of Nonautologous Red Blood Cells into Peripheral Vein, Percutaneous Approach (ICD-10-PCS; principal; 2024-10-19)
DX: K72.00 Acute and subacute hepatic failure without coma (principal); K76.9 Liver disease, unspecified; D63.8 Anemia in other chronic diseases classified elsewhere; R60.1 Generalized edema; D68.9 Coagulation defect, unspecified; F05 Delirium due to known physiological condition; M62.50 Muscle wasting and atrophy, not elsewhere classified, unspecified site; K74.60 Unspecified cirrhosis of liver; E11.9 Type 2 diabetes mellitus without complications
CPT/HCPCS: 85025; 81001; 36415; 82140; 86900; 86850; 85610; 86901; 82947; 85730; 86920 ×2; 85018; 85014; 80053; 86922 ×2; 70450; 71250; 74176; 51702; 99285; 36430; P9047; J3430; J1940; J2405; P9016 ×2; J7042; J7050; J0696